=== PATIENT | female | born 1985 | race Caucasian/White ===

== ENCOUNTER 2016-12-27 17:59 | Inpatient (IN) | payer OTHER ==
[2016-12-27 21:25] LABS: Hematocrit 39 % (35-47); Hemoglobin 13.4 g/dl (12.0-16.0); Mean Corpuscular HGB Conc 34 g/dl (31-36); Mean Corpuscular Hemoglobin 31 pg (27-31); Mean Corpuscular Volume 90 fL (80-97); Mean Platelet Volume 8 um3 (7.4-10.4); Red Blood Count 4.36 10^6/ul (4.0-5.4); Red Cell Distribution Width 14 % (10.5-15); White Blood Count 14.3 10^3/ul (3.5-10.8)
[2016-12-28] MEDS ORDERED: Oxytocin in LR* 20 UNITS/1,000 ML BAG IVPB ONE (11:27)
[2016-12-28] MEDS ORDERED: Oxytocin in LR* 20 UNITS/1,000 ML BAG IVPB SCH ×2 (11:30→17:00)
[2016-12-28] MEDS ORDERED: Glycerin ADULT SUPP PR PRN (16:21)
[2016-12-28] MEDS ORDERED: Witch Hazel PAD* JAR TOPICAL PRN (16:21)
[2016-12-28] MEDS ORDERED: Acetaminophen TAB* 325 MG PO PRN (16:21)
[2016-12-28] MEDS ORDERED: RHO D Immune Globulin (HUMAN)* 300 MCG = 1,500 I.U. INJ IM ONE (16:21)
[2016-12-28] MEDS ORDERED: Dibucaine 1% 28.35 GM TUBE PR PRN (16:21)
[2016-12-28] MEDS: Ibuprofen TAB* 600 MG PO PRN ×2 (17:08→23:10)
[2016-12-28] MEDS ORDERED: Simethicone CHEW TAB* 80 MG PO SCH (17:30)
[2016-12-28] MEDS: Docusate CAP* 100 MG PO SCH (20:45)
[2016-12-29 05:56] LABS: Hematocrit 30 % (35-47); Hemoglobin 10.2 g/dl (12.0-16.0); Mean Corpuscular HGB Conc 34 g/dl (31-36); Mean Corpuscular Hemoglobin 31 pg (27-31); Mean Corpuscular Volume 92 fL (80-97); Mean Platelet Volume 8 um3 (7.4-10.4); Red Blood Count 3.28 10^6/ul (4.0-5.4); Red Cell Distribution Width 14 % (10.5-15); White Blood Count 12.9 10^3/ul (3.5-10.8)
[2016-12-29] MEDS ORDERED: Ferrous Gluconate TAB* 324 MG TAB PO SCH (09:00)
[2016-12-29] MEDS: Docusate CAP* 100 MG PO SCH ×3 (09:54→21:23)
--- NOTE | 2016-12-29 10:36 | PTEDU ---
Patient Name: EDDIE WEIR EDDIE WEIR selected video: Follow Me Mum: The [facility] to Successful to view on 12/29/2016 at 10:35:14 AM from [email or web address]
[2016-12-30 03:49] VITALS: BP 118/62
[2016-12-30] MEDS: Docusate CAP* 100 MG PO SCH ×2 (09:03→14:03)
--- NOTE | 2016-12-30 13:49 | PTEDU ---
Patient Name: EDDIE WEIR EDDIE WEIR selected video: Never Ever Shake a Baby to view on 12/30/2016 at 1:48:32 PM from [email or web address]
--- NOTE | 2016-12-30 13:58 | PTEDU ---
Patient Name: EDDIE WEIR EDDIE WEIR selected video: BBOB: Nurturing Your Gorgeous \T\Growing Baby by Breastfeed ing to view on 12/30/2016 at 1:57:32 PM from [email or web address]
== END 2016-12-30 16:35 | disposition home or self-care (01) | DRG 775 ==
LOC: MCHOBOUT 17:59 → MCHOB 21:05
PROVIDERS: ADMIT Midwife; ATTEND Nurse Practitioner
PROC: 10E0XZZ Delivery of Products of Conception, External Approach (ICD-10-PCS; principal; 2016-12-28)
PROC: 4A1HXCZ Monitoring of Products of Conception, Cardiac Rate, External Approach (ICD-10-PCS; 2016-12-28)
PROC: 0HQ9XZZ Repair Perineum Skin, External Approach (ICD-10-PCS; 2016-12-28)
PROC: 3E0234Z Introduction of Serum, Toxoid and Vaccine into Muscle, Percutaneous Approach (ICD-10-PCS; 2016-12-28)
DX: O48.0 Post-term pregnancy (principal); O26.893 Other specified pregnancy related conditions, third trimester; O99.824 Streptococcus B carrier state complicating childbirth; Z3A.41 41 weeks gestation of pregnancy; Z37.0 Single live birth; O32.6XX0 Maternal care for compound presentation, not applicable or unspecified; O77.0 Labor and delivery complicated by meconium in amniotic fluid; O70.0 First degree perineal laceration during delivery; O43.123 Velamentous insertion of umbilical cord, third trimester; Z67.41 Type O blood, Rh negative
CPT/HCPCS: 36415; 85025; 85461; 86850; 86900; 86901; A9270-GY; J2540; J2790

== ENCOUNTER 2019-07-25 14:14 | Inpatient (IN) | payer OTHER ==
[2019-07-25] MEDS ORDERED: Penicillin G Potassium IV* 5,000,000 UNITS in NS 0.9% 100 ML* 100 ML IVPB ONE (15:12)
[2019-07-25] MEDS ORDERED: Lactated Ringers 1000 ML Bag* 1,000 ML IV ONE (15:12)
[2019-07-25] MEDS ORDERED: Buffered Lidocaine 1% SYRIN* 1 ML/SYRINGE INTRADERM ONE (15:12)
--- NOTE | 2019-07-25 15:22 | HP ---
General Information - Reason for Visit 33yo, @41+1 here in early labor - General Information Maternal Age: 33 Grav: 2 Para: 1 SAB: 0 IEA: 0 Estimated Due Date: 07/17/19 Determined By: Early Ultrasound Gestational Age in Weeks/Days: 41+1 Maternal Blood Type and Rh: O Negative - Results this Serology/RPR Result: Non-Reactive Rubella Result: Immune HBsAg Result: Negative HIV Result: Negative GBS Culture Result: Positive Past Medical History Delivery History: Hx Complicated Vaginal Delivery - G1: meconium, first degree laceration, postdates delivery Pertinent Past Medical History: Non-Contributory Past Surgical History Comment: wisdom tooth extraction Family History Comment: mother: HTN, DVT (PP after 4th baby - tx and resolved - not on meds) brother 1: lupus anticoagulant. Review of Systems Constitutional: Uncomfortable CV Complaint: No Respiratory: Shortness of Breath: No Gastrointestinal: No Nausea/Vomiting, Normal Bowel Movement Genitourinary: No Dysuria, No Bleeding, No Leaking Fluid Musculoskeletal: Contractions Neurological: No Headache, No Visual Changes Movement: Normal Exam Allergies/Adverse Reactions: Allergies No Known Allergies Allergy (Verified 12/27/16 18:14) - Measurements Height: 5 ft 10.25 in Weight: 240 lb Weight in lbs: [phone] Body Mass Index (BMI): 34.2 Pre- Weight: 190 lb Weight Gained This : 50 lbs and 0 ozs - Exam Breast: Breast Exam Deferred CVA: No CVA Tenderness Extremities: No Edema Heart: Normal Rhythm/Heart Sounds HEENT: No Significant Findings Lungs: Clear Bilaterally Rectal: Rectal Exam Deferred Reflexes: DTR 2+ Thyroid: No Thyromegaly Targeted Exam Findings Estimated Weight: 8lbs Cervical Exam: 3cm, 4cm Effacement: 70% Station: -2 Presenting Part: Vertex Membrane Status: Intact Bleeding/Discharge: Bloody Show EFM Findings - External Monitor Findings External Monitor Findings: Accelerations Present, No Pattern of Variable or Late Decelerations, Variability Moderate, Baseline Stable External Monitor Findings Comment: No evidence of metabolic acidemia Contractions: Irregular, < 45 Seconds Assessment/Plan - Assessment IUP@41+1 here in early labor no evidence of metabolic acidemia irregular contractions GBS+ - Obstetrical Risk Factors Obstetrical Risk Factors: Post-Dates - Plan Plan: Admit - Anticipate Vaginal Delivery Plan Comment: Start GBS prophylaxis now Does not desire intervention or pain medication Anticipate progression to active labor and
[2019-07-25 15:26] LABS: ABS Lymphocytes 1.7 10^3/ul (1.0-4.8); ABS Monocytes 0.5 10^3/ul (0-0.8); ABS Neutrophils 6.7 10^3/ul (1.5-7.7); Eosinophil % 0.4 %; Hematocrit 36 % (35-47); Hemoglobin 12.4 g/dL (12.0-16.0); Lymphocyte % 19.4 %; Mean Corpuscular HGB Conc 34 g/dL (31-36); Mean Corpuscular Hemoglobin 30 pg (27-31); Mean Corpuscular Volume 86 fL (80-97); Mean Platelet Volume 7.3 fL (7.4-10.4); Nucleated Red Blood Cells % 0.1; Platelet Count 268 10^3/uL (150-450); Red Blood Count 4.19 10^6 /uL (3.70-4.87); Red Cell Distribution Width 14 % (10-15)
[2019-07-25] MEDS ORDERED: Lactated Ringers 1000 ML Bag* 1,000 ML IV SCH ×2 (16:00→22:00)
[2019-07-25] MEDS ORDERED: Penicillin G Potassium IV* 3,000,000 UNITS in NS 0.9% 100 ML* 100 ML IVPB SCH (20:00)
[2019-07-25] MEDS ORDERED: Oxytocin in LR* 20 UNITS/1,000 ML BAG IVPB ONE (21:33)
[2019-07-25] MEDS ORDERED: Acetaminophen TAB* 325 MG PO PRN (21:38)
[2019-07-25] MEDS ORDERED: RHO D Immune Globulin (HUMAN)* 300 MCG = 1,500 I.U. INJ IM ONE (21:38)
[2019-07-25] MEDS ORDERED: Glycerin ADULT SUPP PR PRN (21:38)
[2019-07-25] MEDS ORDERED: Witch Hazel PAD* JAR TOPICAL PRN (21:38)
[2019-07-25] MEDS ORDERED: Dibucaine 1% 28.35 GM TUBE PR PRN (21:38)
[2019-07-25] MEDS ORDERED: Ibuprofen TAB* 600 MG ONE (21:43)
[2019-07-25] MEDS: Ibuprofen TAB* 600 MG PO PRN (21:45)
[2019-07-25] MEDS ORDERED: Oxytocin in LR* 20 UNITS/1,000 ML BAG IVPB SCH (22:00)
[2019-07-26] MEDS: Ibuprofen TAB* 600 MG PO PRN (03:30)
[2019-07-26 05:24] LABS: ABS Lymphocytes 2.1 10^3/ul (1.0-4.8); ABS Monocytes 0.5 10^3/ul (0-0.8); ABS Neutrophils 11.4 10^3/ul (1.5-7.7); Hematocrit 34 % (35-47); Hemoglobin 11.4 g/dL (12.0-16.0); Mean Corpuscular HGB Conc 34 g/dL (31-36); Mean Corpuscular Hemoglobin 29 pg (27-31); Mean Corpuscular Volume 86 fL (80-97); Mean Platelet Volume 7.2 fL (7.4-10.4); Nucleated Red Blood Cells % 0.1; Platelet Count 244 10^3/uL (150-450); Red Blood Count 3.92 10^6 /uL (3.70-4.87); Red Cell Distribution Width 14 % (10-15); White Blood Count 14.1 10^3/uL (3.5-10.8)
[2019-07-26] MEDS: Simethicone TAB* 80 MG TAB.CHEW PO SCH ×3 (08:29→18:05)
[2019-07-26] MEDS: Docusate CAP* 100 MG PO SCH ×3 (08:33→20:27)
[2019-07-26] MEDS ORDERED: Ferrous Gluconate TAB* 324 MG TAB PO SCH (09:00)
[2019-07-26 10:38] LABS: Urine Benzodiazepine Screen None Detected (None Detect); Urine Opiates Screen None Detected (None Detect)
[2019-07-26] MEDS ORDERED: RHO D Immune Globulin (HUMAN)* 300 MCG = 1,500 I.U. INJ IM ONE (11:02)
[2019-07-27 07:46] VITALS: BP 114/58
[2019-07-27] MEDS: Docusate CAP* 100 MG PO SCH ×2 (09:20→14:26)
[2019-07-27] MEDS: Ibuprofen TAB* 600 MG PO PRN (16:07)
== END 2019-07-27 16:45 | disposition home or self-care (01) | DRG 807 ==
LOC: MCHOBOUT 14:14 → MCHOB 15:24
PROVIDERS: ADMIT Midwife; ATTEND Obstetrics & Gynecology
PROC: 10E0XZZ Delivery of Products of Conception, External Approach (ICD-10-PCS; principal; 2019-07-25)
DX: O48.0 Post-term pregnancy (principal); Z37.0 Single live birth; Z3A.41 41 weeks gestation of pregnancy; O99.824 Streptococcus B carrier state complicating childbirth
CPT/HCPCS: 36415; 80307; 85025; 85461; 86850; 86900; 86901; A9270-GY; G0480; J2540; J2790